=== PATIENT | female | born 1990 | race Caucasian/White ===

== ENCOUNTER 2020-02-15 20:17 | Inpatient (IN) | payer BC ==
[2020-02-15] MEDS ORDERED: Lactated Ringers 1,000 ML IV ONE (22:03)
[2020-02-15] MEDS ORDERED: Tranexamic Acid 1,000 MG in Sodium Chloride 0.9% 100 ML IV PRN (22:03)
[2020-02-15] MEDS ORDERED: Carboprost Tromethamine 250 MCG/1 ML Amp IM PRN (22:03)
[2020-02-15] MEDS ORDERED: Misoprostol 400 MCG (4 X 100 MCG TAB) RECTAL PRN (22:03)
[2020-02-15] MEDS ORDERED: Ondansetron 4 MG/2 ML SDV IVPUSH PRN (22:03)
[2020-02-15] MEDS ORDERED: Lidocaine 1% 30 ML SDV INJECT PRN (22:03)
[2020-02-15] MEDS ORDERED: Methylergonovine 0.2 MG/1 ML Amp IM PRN (22:03)
[2020-02-15] MEDS ORDERED: Sodium Chloride 0.9% 10 ML Syringe FLUSH PRN (22:03)
[2020-02-15] MEDS ORDERED: Oxytocin/Normal Saline 30 UNIT/500 ML BAG IV SCH (22:15)
--- NOTE | 2020-02-15 22:24 | PCM.LDHP ---
L&D History of Present Illness - General Date of Service: 02/15/20 (Admit H&P) Admit Problem/Dx: Patient Status Order with Admit Dx/Problem 02/15/20 22:03 Patient Status [ADT] Routine Admission Diagnosis/Problem Admission Diagnosis/Problem Gestational hypertension affecting third 02/15/20 22:18 29yo @ 38w6d to OB cramping, baby active, mucousy discharge, irregular cxns BP elevated swelling increased pre-E labs look ok, PLT 173, but prot/crea 173. AROM clear, cervix 4+vertex, clear fluid NST reactive admitted will start pitocin augmentation. Source of Information: Patient, Family, Old Records, Provider, RN, Significant Other History Limitations: Reports: No Limitations - History of Present Illness Introduction:: 29yo @ 38w6d in with cramping, irregular cxns, mucousy discharge to be checked. found to have elevated BP, protein in the urine and meeting criteria for pre-E reactive NST cervix 3+ on admit, BBOWI, AROM with clear fluid, cervix now 4+ will start pitocin augmentation monitor closely. Timing/Duration: Reports: intermittent, waxing/waning Location, : Reports: Uterus Severity: Mild Context: Reports: Other (has been isolating) Associated Symptoms: Reports: vaginal discharge, mild amount - Related Data Allergies/Adverse Reactions: Allergies Allergy/AdvReac Type Severity Reaction Status Date / Time No Known Allergies Allergy Verified 11/04/16 05:37 Home Medications: Home Meds Vit Calc,Iron,Folic [ Vitamins] 1 each PO DAILY 03/31/16 [ History] Past Medical History - Past Health History Medical/Surgical History: Denies Medical/Surgical History HEENT History: Reports: None Cardiovascular History: Reports: None Respiratory History: Reports: None Gastrointestinal History: Reports: Cholelithiasis (lap annelise) Genitourinary History: Reports: None WAITRESS History: Reports: , Other (See Below) : 2 Para: 1 LMP (Approximate): Other OB/BYN History: previous preg post term vacuum assist, 41w4d. 8lb 2oz Musculoskeletal History: Reports: Other (See Below) (ACL repair) Neurological History: Reports: None Psychiatric History: Reports: None Endocrine/Metabolic History: Reports: None Hematologic History: Reports: None Immunologic History: Reports: None Oncologic (Cancer) History: Reports: None Dermatologic History: Reports: None - Infectious Disease History Infectious Disease History: Reports: None - Past Surgical History Head Surgeries/Procedures: Reports: None GI Surgical History: Reports: Cholecystectomy, Other (See Below) Other GI Surgeries/Procedures: 12/07/2016 Musculoskeletal Surgical History: Reports: Other (See Below) (ACL repair) Social & Family History - Family History Family Medical History: Noncontributory Cardiac: Reports: Pacemaker (PGF) Endocrine/Metabolic: Reports: Diabetes, type II (PGF) Oncologic: Reports: Pancreatic (PA) Other Family History: Alzheimers PGM - Tobacco Use Smoking Status *Q: Never Smoker Second Hand Smoke Exposure: No - Caffeine Use Caffeine Use: Reports: None - Alcohol Use Alcohol Use in Last Twelve Months: No Alcohol Use Comment: Social use when not - Recreational Drug Use Recreational Drug Use: No - Living Situation & Occupation Living situation: Reports: , with Family Social History Comment: to [place] in April 2015. Mom is Keyonna Su. they have son Vandana born 07-13-2016. She teaches, he farms/ ranches. H&P Review of Systems - Review of Systems: Review Of Systems: Comprehensive ROS is negative, except as noted in HPI. L&D Exam - Exam Exam: See Below - Vital Signs Weight: 240 lb - OB Specific Fundal Height In cm: 39 Contraction Intensity: Mild Movement: Active Heart Tones: Present Heart Tones per Min: 140 Heart Rate (FHR) Variability: Moderate (6-25 bmp) Presentation: Vertex - Saleh Score Saleh Score Cervix Position: Midposition Saleh Score Consistency: Soft Saleh Score Effacement: 51-70% Saleh Score Dilation: 3-4 cm Saleh Score Infant's Station: -2 Saleh Score Total: 8 - Exam General: Alert, Oriented HEENT: Conjunctiva Clear, EOMI, Hearing Intact, Mucosa Moist & Martin'S Additions, Nares Patent, Pupils Equal, Pupils Reactive Neck: Supple, Trachea Midline Lungs: Clear to Auscultation, Normal Respiratory Effort Cardiovascular: Regular Rate, Regular Rhythm GI/Abdominal Exam: Normal Bowel Sounds, Soft, Non-Tender Rectal Exam: Normal Exam Genitourinary: Normal external exam, Normal speculum exam, Cervical dilitation, Cervical discharge (mucous plug), Cervical fluid (clear after AROM), Enlarged uterus Back Exam: Normal Inspection, Full Range of Motion Extremities: Normal Inspection, Normal Range of Motion, Non-Tender, Normal Capillary Refill, Pedal Edema (trace) Skin: Warm, Dry, Intact, Other (sun burn) Neurological: Cranial Nerves Intact, Reflexes Equal Bilateral Psychiatric: Alert, Normal Affect, Normal Mood - Patient Data Lab Results Last 24 hrs: Laboratory Results - last 24 hr 02/15/20 02/15/20 02/15/20 Range/Units 21:17 21:17 21:20 WBC 9.5 (5.0-10.0) 10^3/uL RBC 4.09 L (4.2-5.4) 10^6/uL Hgb 12.0 D (12.0-16.0) g/dL Hct 35.7 L (37.0-47.0) % MCV 87.3 D (80-100) fL MCH 29.3 (27.0-34.0) pg MCHC 33.6 (33.0-35.0) g/dL Plt Count 173 (150-450) 10^3/uL BUN (7-18) mg/dL Creatinine (0.55-1.02) mg/dL Est Cr Clr Drug Dosing mL/min Estimated GFR (MDRD) Uric Acid (2.6-6.0) mg/dL AST (15-37) U/L ALT (14-59) U/L Lactate Dehydrogenase (81-234) U/L Urine Color Yellow (YELLOW) Urine Appearance Slightly cloudy (CLEAR) Urine pH 6.5 (5.0-9.0) Ur Specific [place] 1.025 (1.005-1.030) Urine Protein Negative (NEGATIVE) Urine Glucose (UA) Negative (NEGATIVE) Urine Ketones Negative (NEGATIVE) Urine Occult Blood Moderate H (NEGATIVE) Urine Nitrite Negative (NEGATIVE) Urine Bilirubin Negative (NEGATIVE) Urine Urobilinogen 0.2 (0.2-1.0) mg/dL Ur Leukocyte Esterase Trace H (NEGATIVE) Ur Random Creatinine 112.60 (No establ ref range) mg/dL U Random Total Protein 19.4 H (0.0-11.9) mg/dL Protein/Creatinin Ratio 172.3 H (<150.0) mg/g 02/15/20 Range/Units 21:20 WBC (5.0-10.0) 10^3/uL RBC (4.2-5.4) 10^6/uL Hgb (12.0-16.0) g/dL Hct (37.0-47.0) % MCV (80-100) fL MCH (27.0-34.0) pg MCHC (33.0-35.0) g/dL Plt Count (150-450) 10^3/uL BUN 9 (7-18) mg/dL Creatinine 0.86 (0.55-1.02) mg/dL Est Cr Clr Drug Dosing 111.38 mL/min Estimated GFR (MDRD) > 60 Uric Acid 5.9 (2.6-6.0) mg/dL AST 13 L (15-37) U/L ALT 19 (14-59) U/L Lactate Dehydrogenase 151 (81-234) U/L Urine Color (YELLOW) Urine Appearance (CLEAR) Urine pH (5.0-9.0) Ur Specific [place] (1.005-1.030) Urine Protein (NEGATIVE) Urine Glucose (UA) (NEGATIVE) Urine Ketones (NEGATIVE) Urine Occult Blood (NEGATIVE) Urine Nitrite (NEGATIVE) Urine Bilirubin (NEGATIVE) Urine Urobilinogen (0.2-1.0) mg/dL Ur Leukocyte Esterase (NEGATIVE) Ur Random Creatinine (No establ ref range) mg/dL U Random Total Protein (0.0-11.9) mg/dL Protein/Creatinin Ratio (<150.0) mg/g Result Diagrams: 02/15/20 21:20 02/15/20 21:20 - Problem List (1) Term SNOMED Code(s): 39732154 ICD Code: Z34.90 - ENCNTR FOR SUPRVSN OF NORMAL , UNSP, UNSP TRIMESTER Status: Acute Current Visit: Yes (2) Pre-eclampsia during in third trimester, antepartum SNOMED Code(s): 446482049, 992184690 ICD Code: O14.93 - UNSPECIFIED PRE-ECLAMPSIA, THIRD TRIMESTER Status: Acute Current Visit: Yes (3) Blood type O+ SNOMED Code(s): 285120947 ICD Code: Z67.40 - TYPE O BLOOD, RH POSITIVE Status: Acute Current Visit : Yes (4) Rubella immune SNOMED Code(s): 014989648 ICD Code: Z78.9 - OTHER SPECIFIED HEALTH STATUS Status: Acute Current Visit: Yes (5) Group B Streptococcus not isolated SNOMED Code(s): 617177749 ICD Code: [id number] - Status: Acute Current Visit: Yes (6) NST (non-stress test) reactive SNOMED Code(s): 031755594 ICD Code: Z36.89 - ENCOUNTER FOR OTHER SPECIFIED SCREENING Status : Acute Current Visit: Yes Problem List Initiated/Reviewed/Updated: Yes Orders Last 24hrs: Active Orders 24 hr Category Date Time Status Patient Status [ADT] Routine ADT 02/15/20 22:03 Active Communication Order [RC] ASDIRECTED Care 02/15/20 22:03 Active Heart Tones [RC] PER UNIT ROUTINE Care 02/15/20 22:03 Active Non Stress Test [RC] PER UNIT ROUTINE Care 02/15/20 22:05 Active Notify Provider Vital Signs OB [RC] ASDIRECTED Care 02/15/20 22:03 Active Notify Provider [RC] PRN Care 02/15/20 22:03 Active OB Check [OM.PC] Click To Edit Care 02/15/20 20:30 Ordered Pump Management, Intrathecal [RC] ASDIRECTED Care 02/15/20 22:06 Active Up ad Radha [RC] ASDIRECTED Care 02/15/20 22:03 Active Vital Signs [RC] PER UNIT ROUTINE Care 02/15/20 22:03 Active Clear Liquid Diet [DIET] Diet 02/15/20 Dinner Active CORONAVIRUS COVID-19 PCR PHL Stat Lab 02/15/20 22:09 Ordered Acetaminophen [Tylenol] Med 02/15/20 22:03 Ordered 650 mg PO Q4H PRN Carboprost Tromethamine [Hemabate DS] Med 02/15/20 22:03 Ordered 250 mcg IM ASDIRECTED PRN Lactated Ringers [Ringers, Lactated] 1,000 ml Med 02/15/20 22:15 Ordered IV ASDIRECTED Lactated Ringers [Ringers, Lactated] 1,000 ml Med 02/15/20 22:03 Ordered IV BOLUS Lidocaine 1% [Xylocaine-MPF 1%] Med 02/15/20 22:03 Ordered 30 ml INJECT ASDIRECTED PRN Methylergonovine [Methergine] Med 02/15/20 22:03 Ordered 0.2 mg IM ASDIRECTED PRN Ondansetron [Zofran] Med 02/15/20 22:03 Ordered 4 mg IVPUSH Q4H PRN Oxytocin/Normal Saline [Pitocin in NS 30 UNIT/500 ML] Med 02/15/20 22:15 Ordered 30 unit in 500 ml IV TITRATE Sodium Chloride 0.9% [Saline Flush] Med 02/15/20 22:03 Ordered 10 ml FLUSH ASDIRECTED PRN Tranexamic Acid [Cyklokapron] 1,000 mg Med 02/15/20 22:03 Ordered Sodium Chloride 0.9% [Normal Saline] 100 ml IV ONETIME miSOPROStoL [Cytotec] Med 02/15/20 22:03 Ordered 800 mcg RECTAL ASDIRECTED PRN EFM External [ Heart Monitor External] [WOMSER] Oth 02/15/20 20:30 Ordered Per Unit Routine Saline Lock Insert [OM.PC] Routine Oth 02/15/20 22:03 Ordered Resuscitation Status Routine Resus Stat 02/15/20 22:03 Ordered Medication Orders Acetaminophen (Tylenol) 650 mg PO Q4H PRN PRN Reason: Pain (Mild 1-3) and fever Carboprost Tromethamine (Hemabate Ds) 250 mcg IM ASDIRECTED PRN PRN Reason: HEMORRHAGE Lactated Ringer's (Ringers, Lactated) 1,000 mls @ 999 mls/hr IV BOLUS ONE Stop: 02/15/20 23:03 Lactated Ringer's (Ringers, Lactated) 1,000 mls @ 125 mls/hr IV ASDIRECTED FABIO Oxytocin/Sodium Chloride (Pitocin In Ns 30 Unit/500 Ml) 30 unit in 500 mls @ 2 mls/hr IV TITRATE FABIO; Protocol Tranexamic Acid 1,000 mg/ (Sodium Chloride) 110 mls @ 660 mls/hr IV ONETIME PRN PRN Reason: Bleeding Lidocaine HCl (Xylocaine-Mpf 1%) 30 ml INJECT ASDIRECTED PRN PRN Reason: Perineal Repair Methylergonovine Maleate (Methergine) 0.2 mg IM ASDIRECTED PRN PRN Reason: Hemorrhage Misoprostol (Cytotec) 800 mcg RECTAL ASDIRECTED PRN PRN Reason: Hemorrhage Ondansetron HCl (Zofran) 4 mg IVPUSH Q4H PRN PRN Reason: Nausea/Vomiting Sodium Chloride (Saline Flush) 10 ml FLUSH ASDIRECTED PRN PRN Reason: Keep Vein Open Assessment/Plan Comment:: Assessment: 29yo WF @ 38w6d mild pre-eclampsia reactive NST rubella immune blood type O+ GBS negative admit hgb 12.0, PLT 173, urine protein 173 Plan: admit AROM with clear fluid pitocin augmentation. close monitoring of BP and for pre-E sx and signs all questiosn answered for [facility] and [facility] COVID testing pending. hmb
[2020-02-15] MEDS: Lactated Ringers 1,000 ML IV SCH (22:45)
[2020-02-16] MEDS ORDERED: EPINEPHrine 1 MG/1 ML Amp ONE ×2 (01:20→16:17)
--- NOTE | 2020-02-16 02:07 | PCM.PREANE ---
Preanesthetic Assessment - Procedure Proposed Procedure: IT analgesia - Anesthesia/Transfusion/Family Hx Anesthesia History: Prior Anesthesia Without Reaction Family History of Anesthesia Reaction: No Transfusion History: No Prior Transfusion(s) - Review of Systems General: No Symptoms Pulmonary: No Symptoms Cardiovascular: No Symptoms Gastrointestinal: No Symptoms Neurological: No Symptoms Other: Reports: None - Physical Assessment NPO Status Date: 02/16/20 NPO Status Time: 21:00 Height: 6 ft Weight: 240 lb ASA Class: 2E Mental Status: Alert & Oriented x3 Airway Class: Mallampati = 2 Dentition: Reports: Normal Dentition Thyro-Mental Finger Breadths: 3 Mouth Opening Finger Breadths: 3 ROM/Head Extension: Full Lungs: Clear to Auscultation Cardiovascular: Regular Rate, Regular Rhythm - Lab Values: Laboratory Last Values WBC 9.5 10^3/uL (5.0-10.0) 02/15/20 21:20 RBC 4.09 10^6/uL (4.2-5.4) L 02/15/20 21:20 Hgb 12.0 g/dL (12.0-16.0) D 02/15/20 21:20 Hct 35.7 % (37.0-47.0) L 02/15/20 21:20 MCV 87.3 fL (80-100) D 02/15/20 21:20 MCH 29.3 pg (27.0-34.0) 02/15/20 21:20 MCHC 33.6 g/dL (33.0-35.0) 02/15/20 21:20 Plt Count 173 10^3/uL (150-450) 02/15/20 21:20 BUN 9 mg/dL (7-18) 02/15/20 21:20 Creatinine 0.86 mg/dL (0.55-1.02) 02/15/20 21:20 Est Cr Clr Drug Dosing 111.38 mL/min 02/15/20 21:20 Estimated GFR (MDRD) > 60 02/15/20 21:20 Uric Acid 5.9 mg/dL (2.6-6.0) 02/15/20 21:20 AST 13 U/L (15-37) L 02/15/20 21:20 ALT 19 U/L (14-59) 02/15/20 21:20 Lactate Dehydrogenase 151 U/L (81-234) 02/15/20 21:20 Urine Color Yellow (YELLOW) 02/15/20 21:17 Urine Appearance Slightly cloudy (CLEAR) 02/15/20 21:17 Urine pH 6.5 (5.0-9.0) 02/15/20 21:17 Ur Specific [place] 1.025 (1.005-1.030) 02/15/20 21:17 Urine Protein Negative (NEGATIVE) 02/15/20 21:17 Urine Glucose (UA) Negative (NEGATIVE) 02/15/20 21:17 Urine Ketones Negative (NEGATIVE) 02/15/20 21:17 Urine Occult Blood Moderate (NEGATIVE) H 02/15/20 21:17 Urine Nitrite Negative (NEGATIVE) 02/15/20 21:17 Urine Bilirubin Negative (NEGATIVE) 02/15/20 21:17 Urine Urobilinogen 0.2 mg/dL (0.2-1.0) 02/15/20 21:17 Ur Leukocyte Esterase Trace (NEGATIVE) H 02/15/20 21:17 Ur Random Creatinine 112.60 mg/dL (No establ ref range) 02/15/20 21:17 U Random Total Protein 19.4 mg/dL (0.0-11.9) H 02/15/20 21:17 Protein/Creatinin Ratio 172.3 mg/g (<150.0) H 02/15/20 21:17 SARS-CoV-2 RNA (RT-PCR) Negative (NEGATIVE) 02/15/20 22:35 - Allergies Allergies/Adverse Reactions: Allergies Allergy/AdvReac Type Severity Reaction Status Date / Time No Known Allergies Allergy Verified 11/04/16 05:37 - Blood Blood Available: No - Anesthesia Plan Pre-Op Medication Ordered: None - Acknowledgements Anesthesia Type Planned: Spinal Pt an Appropriate Candidate for the Planned Anesthesia: Yes Alternatives and Risks of Anesthesia Discussed w Pt/Guardian: Yes Pt/Guardian Understands and Agrees with Anesthesia Plan: Yes PreAnesthesia Questionnaire - Past Health History Medical/Surgical History: Denies Medical/Surgical History HEENT History: Reports: None Cardiovascular History: Reports: None Respiratory History: Reports: None Gastrointestinal History: Reports: Cholelithiasis (lap annelise) Genitourinary History: Reports: None 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 8lb 2oz Musculoskeletal History: Reports: Other (See Below) (ACL repair) Neurological History: Reports: None Psychiatric History: Reports: None Endocrine/Metabolic History: Reports: None Hematologic History: Reports: None Immunologic History: Reports: None Oncologic (Cancer) History: Reports: None Dermatologic History: Reports: None - Infectious Disease History Infectious Disease History: Reports: None - Past Surgical History Head Surgeries/Procedures: Reports: None GI Surgical History: Reports: Cholecystectomy, Other (See Below) Other GI Surgeries/Procedures: 12/07/2016 Musculoskeletal Surgical History: Reports: Other (See Below) (ACL repair) - SUBSTANCE USE Smoking Status *Q: Never Smoker Second Hand Smoke Exposure: No Recreational Drug Use History: No - HOME MEDS Home Medications: Home Meds Vit Calc,Iron,Folic [ Vitamins] 1 each PO DAILY 03/31/16 [ History] - CURRENT (IN HOUSE) MEDS Current Meds: Current Medications Acetaminophen (Tylenol) 650 mg PO Q4H PRN PRN Reason: Pain (Mild 1-3) and fever Carboprost Tromethamine (Hemabate Ds) 250 mcg IM ASDIRECTED PRN PRN Reason: HEMORRHAGE Lactated Ringer's (Ringers, Lactated) 1,000 mls @ 125 mls/hr IV ASDIRECTED FABIO Last Admin: 02/15/20 22:45 Dose: 125 mls/hr Oxytocin/Sodium Chloride (Pitocin In Ns 30 Unit/500 Ml) 30 unit in 500 mls @ 2 mls/hr IV TITRATE FABIO; Protocol Last Titration: 02/15/20 23:40 Dose: 4 munits/min, 4 mls/hr Tranexamic Acid 1,000 mg/ (Sodium Chloride) 110 mls @ 660 mls/hr IV ONETIME PRN PRN Reason: Bleeding Lidocaine HCl (Xylocaine-Mpf 1%) 30 ml INJECT ASDIRECTED PRN PRN Reason: Perineal Repair Methylergonovine Maleate (Methergine) 0.2 mg IM ASDIRECTED PRN PRN Reason: Hemorrhage Misoprostol (Cytotec) 800 mcg RECTAL ASDIRECTED PRN PRN Reason: Hemorrhage Ondansetron HCl (Zofran) 4 mg IVPUSH Q4H PRN PRN Reason: Nausea/Vomiting Last Admin: 02/16/20 01:15 Dose: 4 mg Sodium Chloride (Saline Flush) 10 ml FLUSH ASDIRECTED PRN PRN Reason: Keep Vein Open Discontinued Medications Epinephrine HCl (Adrenalin) Confirm Administered Dose 1 mg .ROUTE .STK-MED ONE Stop: 02/16/20 01:21 Lactated Ringer's (Ringers, Lactated) 1,000 mls @ 999 mls/hr IV BOLUS ONE Stop: 02/15/20 23:03
--- NOTE | 2020-02-16 02:11 | PCM.PRNOTE ---
- Free Text/Narrative Note: IT analgesia 0122 room Time out complete Back prepped and draped NSF with betadine Lidocaine 1%skin wheal L3/4 times 1 +CSF - Heme - Parathesia 10mcg precedex 0.1mL epi 0.9mL NS 0.9 mL 0.75% marcaine. Tolerated well. All needles accounted for and disposed of in sharps box. Complete 013
[2020-02-16] MEDS: Lactated Ringers 1,000 ML IV SCH (02:38)
[2020-02-16] MEDS ORDERED: Benzocaine/Menthol 20%-0.5% Spray 56 GM Canister TOP PRN (04:40)
[2020-02-16] MEDS ORDERED: Zolpidem 5 MG Tab PO PRN (04:40)
[2020-02-16] MEDS ORDERED: Simethicone 80 MG Tab.Chew PO PRN (04:40)
--- NOTE | 2020-02-16 05:04 | PCM.DEL ---
L & D Note - General Info Date of Service: 02/16/20 (Time of delivery: 0424) Mother's Due Date: 02/23/20 (39w0d) - Delivery Note Labor: Spontaneous, Augmented by ARM, Augmented by Oxytocin Delivery Outcome: Livebirth Delivery Method: Spontaneous Vaginal Delivery-Single Infant Delivery Mode: Spontaneous Presentation: Right Occiput Anterior (VINH) Nuchal Cord: None Prep: Povidone-Iodine (Betadine Anesthesia Type: Intrathecal Amniotic Fluid Description: Clear Episiotomy Type: None Laceration: None Placenta: Intact, Spontaneous Cord: 3 Vessels Estimated Blood Loss: 256 (per [place]) Resuscitation Needed: No : Suctioned, Bulb Syringe, Stimulated, Warmed, English Used Provider: Christie Dorsey Score 1 min: 9 Score 5 min: 9 Delivery Comments (Free Text/Narrative):: Edna did a beautiful job pushing and easily delivered a viable male infant over an intact perineum. Viable male infant delivered to mom's abdomen with strong cry at . APGARs 9 & 9 3VC, double clamped by me, then cut be Jones. cord blood sample obtained. placenta delivered spontaneously Welch, examined and found to be complete, intact. fundus firm with massage. Pitocin infusing per protocol. EBL 256ml no complications both mother and baby doing well. will follow routine PP and nursery routines. hmb Induction Criteria - Saleh Score Saleh Score Dilation: 3-4 cm Saleh Score Effacement: 60-70% Saleh Score 's Station: -2 Saleh Score Consistency: Soft Saleh Score Cervix Position: Midposition Saleh Score Total: 8 Saleh Score Presenting Part: Reports: Cephalic - Induction Gestational Age >/= 39 wks: Yes Medical Indication: pre-Eclampsia Estimated Pelvis: Reports: Adequate Reassuring Monitoring Strip: Yes Absence of Tachy Systole: Yes - Augmentation Estimated Pelvis: Reports: Adequate Weight Estimated:: Reports: AGA Reassuring Monitoring Strip: Yes Absence of Tachy Systole: Yes - General Info Date of Service: 02/16/20 - Patient Data Weight - Most Recent: 240 lb Lab Results Last 24 Hours: Laboratory Results - last 24 hr 02/15/20 02/15/20 02/15/20 Range/Units 21:17 21:17 21:20 WBC 9.5 (5.0-10.0) 10^3/uL RBC 4.09 L (4.2-5.4) 10^6/uL Hgb 12.0 D (12.0-16.0) g/dL Hct 35.7 L (37.0-47.0) % MCV 87.3 D (80-100) fL MCH 29.3 (27.0-34.0) pg MCHC 33.6 (33.0-35.0) g/dL Plt Count 173 (150-450) 10^3/uL BUN (7-18) mg/dL Creatinine (0.55-1.02) mg/dL Est Cr Clr Drug Dosing mL/min Estimated GFR (MDRD) Uric Acid (2.6-6.0) mg/dL AST (15-37) U/L ALT (14-59) U/L Lactate Dehydrogenase (81-234) U/L Urine Color Yellow (YELLOW) Urine Appearance Slightly cloudy (CLEAR) Urine pH 6.5 (5.0-9.0) Ur Specific [place] 1.025 (1.005-1.030) Urine Protein Negative (NEGATIVE) Urine Glucose (UA) Negative (NEGATIVE) Urine Ketones Negative (NEGATIVE) Urine Occult Blood Moderate H (NEGATIVE) Urine Nitrite Negative (NEGATIVE) Urine Bilirubin Negative (NEGATIVE) Urine Urobilinogen 0.2 (0.2-1.0) mg/dL Ur Leukocyte Esterase Trace H (NEGATIVE) Ur Random Creatinine 112.60 (No establ ref range) mg/dL U Random Total Protein 19.4 H (0.0-11.9) mg/dL Protein/Creatinin Ratio 172.3 H (<150.0) mg/g SARS-CoV-2 RNA (RT-PCR) (NEGATIVE) 02/15/20 02/15/20 Range/Units 21:20 22:35 WBC (5.0-10.0) 10^3/uL RBC (4.2-5.4) 10^6/uL Hgb (12.0-16.0) g/dL Hct (37.0-47.0) % MCV (80-100) fL MCH (27.0-34.0) pg MCHC (33.0-35.0) g/dL Plt Count (150-450) 10^3/uL BUN 9 (7-18) mg/dL Creatinine 0.86 (0.55-1.02) mg/dL Est Cr Clr Drug Dosing 111.38 mL/min Estimated GFR (MDRD) > 60 Uric Acid 5.9 (2.6-6.0) mg/dL AST 13 L (15-37) U/L ALT 19 (14-59) U/L Lactate Dehydrogenase 151 (81-234) U/L Urine Color (YELLOW) Urine Appearance (CLEAR) Urine pH (5.0-9.0) Ur Specific [place] (1.005-1.030) Urine Protein (NEGATIVE) Urine Glucose (UA) (NEGATIVE) Urine Ketones (NEGATIVE) Urine Occult Blood (NEGATIVE) Urine Nitrite (NEGATIVE) Urine Bilirubin (NEGATIVE) Urine Urobilinogen (0.2-1.0) mg/dL Ur Leukocyte Esterase (NEGATIVE) Ur Random Creatinine (No establ ref range) mg/dL U Random Total Protein (0.0-11.9) mg/dL Protein/Creatinin Ratio (<150.0) mg/g SARS-CoV-2 RNA (RT-PCR) Negative (NEGATIVE) Med Orders - Current: Current Medications Acetaminophen (Tylenol) 650 mg PO Q4H PRN PRN Reason: Pain (Mild 1-3) and fever Benzocaine/Menthol (Dermoplast Pain Relief [place]) 0 gm TOP Q4H PRN PRN Reason: Perineal comfort measures Carboprost Tromethamine (Hemabate Ds) 250 mcg IM ASDIRECTED PRN PRN Reason: HEMORRHAGE Docusate Sodium (Colace) 100 mg PO BID PRN PRN Reason: Constipation Lactated Ringer's (Ringers, Lactated) 1,000 mls @ 125 mls/hr IV ASDIRECTED FABIO Last Admin: 02/16/20 02:38 Dose: 125 mls/hr Oxytocin/Sodium Chloride (Pitocin In Ns 30 Unit/500 Ml) 30 unit in 500 mls @ 2 mls/hr IV TITRATE FABIO; Protocol Last Titration: 02/16/20 03:00 Dose: 14 munits/min, 14 mls/hr Tranexamic Acid 1,000 mg/ (Sodium Chloride) 110 mls @ 660 mls/hr IV ONETIME PRN PRN Reason: Bleeding Ibuprofen (Motrin) 800 mg PO Q8H PRN PRN Reason: Mild Pain or Fever Lidocaine HCl (Xylocaine-Mpf 1%) 30 ml INJECT ASDIRECTED PRN PRN Reason: Perineal Repair Methylergonovine Maleate (Methergine) 0.2 mg IM ASDIRECTED PRN PRN Reason: Hemorrhage Misoprostol (Cytotec) 800 mcg RECTAL ASDIRECTED PRN PRN Reason: Hemorrhage Ondansetron HCl (Zofran) 4 mg IVPUSH Q4H PRN PRN Reason: Nausea/Vomiting Last Admin: 02/16/20 01:15 Dose: 4 mg Prenat Multivit/[place]/Iron/Folic Ac ( Plus Iron) 1 each PO DAILY FABIO Simethicone (Simethicone) 80 mg PO Q4H PRN PRN Reason: Gas Sodium Chloride (Saline Flush) 10 ml FLUSH ASDIRECTED PRN PRN Reason: Keep Vein Open Witch Zora (Medi-Pads) 1 each TOP Q4HR PRN PRN Reason: Perineal Comfort Measure Zolpidem Tartrate (Ambien) 5 mg PO BEDTIME PRN PRN Reason: Insomnia Discontinued Medications Epinephrine HCl (Adrenalin) Confirm Administered Dose 1 mg .ROUTE .STK-MED ONE Stop: 02/16/20 01:21 Last Admin: 02/16/20 03:32 Dose: Not Given Lactated Ringer's (Ringers, Lactated) 1,000 mls @ 999 mls/hr IV BOLUS ONE Stop: 02/15/20 23:03 Last Admin: 02/16/20 03:31 Dose: Not Given - Problem List & Annotations (1) Term SNOMED Code(s): 71479091 Code(s): Z34.90 - ENCNTR FOR SUPRVSN OF NORMAL , UNSP, UNSP TRIMESTER Status: Acute Current Visit: Yes (2) Pre-eclampsia during in third trimester, antepartum SNOMED Code(s): 240824548, 874938136 Code(s): O14.93 - UNSPECIFIED PRE-ECLAMPSIA, THIRD TRIMESTER Status: Acute Current Visit: Yes (3) Blood type O+ SNOMED Code(s): 480120794 Code(s): Z67.40 - TYPE O BLOOD, RH POSITIVE Status: Acute Current Visit: Yes (4) Rubella immune SNOMED Code(s): 218268155 Code(s): Z78.9 - OTHER SPECIFIED HEALTH STATUS Status: Acute Current Visit: Yes (5) Group B Streptococcus not isolated SNOMED Code(s): 310823924 Code(s): MXD0442 - Status: Acute Current Visit: Yes (6) NST (non-stress test) reactive SNOMED Code(s): 918987652 Code(s): Z36.89 - ENCOUNTER FOR OTHER SPECIFIED SCREENING Status : Acute Current Visit: Yes - Problem List Review Problem List Initiated/Reviewed/Updated: Yes - My Orders Last 24 Hours: My Active Orders 02/15/20 20:30 OB Check [OM.PC] Click To Edit EFM External [ Heart Monitor External] [WOMSER] Per Unit Routine 02/15/20 22:03 Patient Status [ADT] Routine Communication Order [RC] ASDIRECTED Notify Provider Vital Signs OB [RC] ASDIRECTED Notify Provider [RC] PRN Up ad Radha [RC] ASDIRECTED Vital Signs [RC] PER UNIT ROUTINE Acetaminophen [Tylenol] 650 mg PO Q4H PRN Carboprost Tromethamine [Hemabate DS] 250 mcg IM ASDIRECTED PRN Lidocaine 1% [Xylocaine-MPF 1%] 30 ml INJECT ASDIRECTED PRN Methylergonovine [Methergine] 0.2 mg IM ASDIRECTED PRN Ondansetron [Zofran] 4 mg IVPUSH Q4H PRN Sodium Chloride 0.9% [Saline Flush] 10 ml FLUSH ASDIRECTED PRN Tranexamic Acid [Cyklokapron] 1,000 mg Sodium Chloride 0.9% [Normal Saline] 100 ml IV ONETIME miSOPROStoL [Cytotec] 800 mcg RECTAL ASDIRECTED PRN Saline Lock Insert [OM.PC] Routine Resuscitation Status Routine 02/15/20 22:06 Pump Management, Intrathecal [RC] ASDIRECTED 02/15/20 22:15 Lactated Ringers [Ringers, Lactated] 1,000 ml IV ASDIRECTED Oxytocin/Normal Saline [Pitocin in NS 30 UNIT/500 ML] 30 unit in 500 ml IV TITRATE 02/15/20 Dinner Clear Liquid Diet [DIET] 02/16/20 04:40 Benzocaine/Menthol [Dermoplast Pain Relief [place]] See Dose Instructions TOP Q4H PRN Docusate Sodium [Colace] 100 mg PO BID PRN Ibuprofen [Motrin] 800 mg PO Q8H PRN Simethicone 80 mg PO Q4H PRN Zolpidem [Ambien] 5 mg PO BEDTIME PRN witch Zora [Medi-Pads] 1 each TOP Q4HR PRN 02/16/20 04:41 Assess Lochia [WOMSER] Per Unit Routine Assess Uterine Involution [WOMSER] Per Unit Routine Breast Pump [WOMSER] Per Unit Routine Ice Therapy [OM.PC] Per Unit Routine Perineal Care [OM.PC] Per Unit Routine Sitz Bath [OM.PC] Per Unit Routine 02/16/20 09:00 Vit with Ca/FA/Iron [ Plus Iron] 1 each PO DAILY 02/16/20 Breakfast Regular Diet [DIET] 02/18/20 05:11 CBC W/O DIFF,HEMOGRAM [HEME] AM - Plan Plan:: Assessment: 29yo WF @ 38w6d mild pre-eclampsia reactive NST rubella immune blood type O+ GBS negative admit hgb 12.0, PLT 173, urine protein 173 Plan: admit AROM with clear fluid pitocin augmentation. close monitoring of BP and for pre-E sx and signs all questiosn answered for Edna and Jones COVID testing pending. hmb Delivery: over intact perineum without complications. viable male . APGARs 9 & 9 7lb 8oz 3040g time of delivery 0424 on 02-16-2020 [place]. hmb
[2020-02-16] MEDS: Ibuprofen 800 MG Tab PO PRN ×3 (05:29→22:50)
[2020-02-16] MEDS: Prenatal Multivitamin with Calcium/Folic Acid/Iron Tab PO SCH (11:12)
[2020-02-16] MEDS: Acetaminophen 325 MG Tab PO PRN ×3 (11:12→22:50)
[2020-02-16] MEDS ORDERED: Dexmedetomidine 200 MCG/2 ML SDV ONE ×2 (11:49→16:17)
--- NOTE | 2020-02-16 12:02 | PCM48HPAN ---
Post Anesthesia Note - EVALUATION WITHIN 48HRS OF ANESTHETIC Vital Signs in Normal Range: Yes Patient Participated in Evaluation: Yes Respiratory Function Stable: Yes Airway Patent: Yes Cardiovascular Function Stable: Yes Hydration Status Stable: Yes Pain Control Satisfactory: Yes Nausea and Vomiting Control Satisfactory: Yes Mental Status Recovered: Yes Vital Signs: Last Vital Signs Temp 98.3 F 02/16/20 08:00 Pulse 92 02/16/20 08:00 Resp 16 02/16/20 08:00 BP 134/74 02/16/20 08:00 Pulse Ox - COMMENTS/OBSERVATIONS Free Text/Narrative:: Pt resting in bed comfortably post IT for labor analgesia. NO ARCs
[2020-02-16] MEDS ORDERED: Sodium Chloride 0.9% 10 ML Syringe ONE (16:17)
[2020-02-16] MEDS: Docusate Sodium 100 MG Cap PO PRN (22:24)
[2020-02-17] MEDS: Prenatal Multivitamin with Calcium/Folic Acid/Iron Tab PO SCH (08:05)
[2020-02-17] MEDS: Ibuprofen 800 MG Tab PO PRN ×2 (08:05→16:47)
[2020-02-17] MEDS: Docusate Sodium 100 MG Cap PO PRN (21:47)
[2020-02-17] MEDS: Acetaminophen 325 MG Tab PO PRN (21:47)
[2020-02-18] MEDS: Ibuprofen 800 MG Tab PO PRN (05:03)
[2020-02-18] MEDS: Acetaminophen 325 MG Tab PO PRN (05:03)
[2020-02-18 08:38] VITALS: BP 133/86; PULSE 80
[2020-02-18] MEDS: Prenatal Multivitamin with Calcium/Folic Acid/Iron Tab PO SCH (08:55)
[2020-02-18] MEDS: Docusate Sodium 100 MG Cap PO PRN (08:55)
--- NOTE | 2020-02-18 13:00 | PCM.DCSUM1 ---
Discharge Summary - Hospital Course Free Text/Narrative:: Edna is a 29yo WF G2 now P2 who is PP day #2 ready for discharge. flow decreased, cramping only with . eating voiding and ambulating well after uncomplicated vaginal delivery. admitted with pre-eclampsia, possible evolving HELLP, and that appears to have stablized. is ready for dishcarge and will gohome today is good condition. delivered a viable 7lb 8oz male on 02-16-2020 @ 0424 hmb HPI Initial Comments: as above--see admission H&P Brief History: as above see admit and EPIC notes. Diagnosis: Stroke: No - Discharge Data Discharge Date: 02/18/20 (PPD #2) Discharge Disposition: Home, Self-Care 01 Condition: Good - Referral to Home Health Primary Care Physician: Christie Dorsey MD - Discharge Diagnosis/Problem(s) (1) Term SNOMED Code(s): 73063825 ICD Code: Z34.90 - ENCNTR FOR SUPRVSN OF NORMAL , UNSP, UNSP TRIMESTER Status: Acute Current Visit: Yes (2) Pre-eclampsia during in third trimester, antepartum SNOMED Code(s): 066220798, 418909146 ICD Code: O14.93 - UNSPECIFIED PRE-ECLAMPSIA, THIRD TRIMESTER Status: Acute Current Visit: Yes (3) Blood type O+ SNOMED Code(s): 234735145 ICD Code: Z67.40 - TYPE O BLOOD, RH POSITIVE Status: Acute Current Visit : Yes (4) Rubella immune SNOMED Code(s): 187573505 ICD Code: Z78.9 - OTHER SPECIFIED HEALTH STATUS Status: Acute Current Visit: Yes (5) Group B Streptococcus not isolated SNOMED Code(s): 457109381 ICD Code: UNE5724 - Status: Acute Current Visit: Yes (6) NST (non-stress test) reactive SNOMED Code(s): 211803984 ICD Code: Z36.89 - ENCOUNTER FOR OTHER SPECIFIED SCREENING Status : Acute Current Visit: Yes - Patient Summary/Data Hospital Course: Hospital course uneventful. this delightful 29yo G2 now P2 was admitted as noted with pre-E at term, 39 weeks she delivered [place], an 7lb 8oz/ 3405g male @ 0424 on 5-31-20 without complications vaginally with APGARs 9 & 9 wtihout problems. afebrile with stable VS. flow as expected, and cramping only with nursing. voiding, ambulating and eating well. no nausea or vomiting. pre-E sx resolving. labs: hgb on admit 12.0, with 10.7 PTD PLT 173 on admit, 144 PTD other pre-E labs on admit reassuring except for urine protein/creatinine ratio home today in good condition with routine discharge orders and instructions. follow up for 6 week check and sooner prn 'all questions answered. hmb - Patient Instructions Diet: Usual Diet as Tolerated Driving: May Drive Today Showering/Bathing: May Shower Notify Provider of: Fever, Increased Pain, Swelling and Redness, Drainage, Nausea and/or Vomiting - Discharge Plan *PRESCRIPTION DRUG MONITORING PROGRAM REVIEWED*: Not Applicable *COPY OF PRESCRIPTION DRUG MONITORING REPORT IN PATIENT EDEN: Not Applicable Home Medications: Home Meds Vit Calc,Iron,Folic [ Vitamins] 1 each PO DAILY 03/31/16 [ History] Patient Handouts: Care After Vaginal Delivery Referrals: Christie Dorsey MD [Primary Care Provider] - (at baby's appointment you can schedule your 6 week follow up, appointment with Dr. Dorsey at a time that works best for you.) - Discharge Summary/Plan Comment DC Time >30 min.: No Discharge Summary/Plan Comment: 6 week check and sooner as needed. hmb - Patient Data Vitals - Most Recent: Last Vital Signs Temp 97.8 F 02/18/20 08:00 Pulse 80 02/18/20 08:00 Resp 18 02/18/20 08:00 BP 133/86 02/18/20 08:00 Pulse Ox 100 02/18/20 08:00 Weight - Most Recent: 240 lb Lab Results - Last 24 hrs: Laboratory Results - last 24 hr 02/18/20 Range/Units 05:35 WBC 7.8 (5.0-10.0) 10^3/uL RBC 3.61 L (4.2-5.4) 10^6/uL Hgb 10.7 L (12.0-16.0) g/dL Hct 32.3 L (37.0-47.0) % MCV 89.5 (80-100) fL MCH 29.6 (27.0-34.0) pg MCHC 33.1 (33.0-35.0) g/dL Plt Count 144 L (150-450) 10^3/uL Med Orders - Current: Current Medications Acetaminophen (Tylenol) 650 mg PO Q4H PRN PRN Reason: Pain (Mild 1-3) and fever Last Admin: 02/18/20 05:03 Dose: 650 mg Benzocaine/Menthol (Dermoplast Pain Relief [place]) 0 gm TOP Q4H PRN PRN Reason: Perineal comfort measures Last Admin: 02/18/20 05:05 Dose: 1 spray Carboprost Tromethamine (Hemabate Ds) 250 mcg IM ASDIRECTED PRN PRN Reason: HEMORRHAGE Docusate Sodium (Colace) 100 mg PO BID PRN PRN Reason: Constipation Last Admin: 02/18/20 08:55 Dose: 100 mg Lactated Ringer's (Ringers, Lactated) 1,000 mls @ 125 mls/hr IV ASDIRECTED FABIO Last Admin: 02/16/20 02:38 Dose: 125 mls/hr Oxytocin/Sodium Chloride (Pitocin In Ns 30 Unit/500 Ml) 30 unit in 500 mls @ 2 mls/hr IV TITRATE FABIO; Protocol Last Titration: 02/16/20 05:30 Dose: 125 munits/min, 125 mls/hr Tranexamic Acid 1,000 mg/ (Sodium Chloride) 110 mls @ 660 mls/hr IV ONETIME PRN PRN Reason: Bleeding Ibuprofen (Motrin) 800 mg PO Q8H PRN PRN Reason: Mild Pain or Fever Last Admin: 02/18/20 05:03 Dose: 800 mg Lidocaine HCl (Xylocaine-Mpf 1%) 30 ml INJECT ASDIRECTED PRN PRN Reason: Perineal Repair Methylergonovine Maleate (Methergine) 0.2 mg IM ASDIRECTED PRN PRN Reason: Hemorrhage Misoprostol (Cytotec) 800 mcg RECTAL ASDIRECTED PRN PRN Reason: Hemorrhage Ondansetron HCl (Zofran) 4 mg IVPUSH Q4H PRN PRN Reason: Nausea/Vomiting Last Admin: 02/16/20 01:15 Dose: 4 mg Prenat Multivit/[place]/Iron/Folic Ac ( Plus Iron) 1 each PO DAILY FABIO Last Admin: 02/18/20 08:55 Dose: 1 each Simethicone (Simethicone) 80 mg PO Q4H PRN PRN Reason: Gas Sodium Chloride (Saline Flush) 10 ml FLUSH ASDIRECTED PRN PRN Reason: Keep Vein Open Witch Zora (Medi-Pads) 1 each TOP Q4HR PRN PRN Reason: Perineal Comfort Measure Zolpidem Tartrate (Ambien) 5 mg PO BEDTIME PRN PRN Reason: Insomnia Discontinued Medications Dexmedetomidine HCl (Precedex) Confirm Administered Dose 200 mcg .ROUTE .STK- MED ONE Stop: 02/16/20 11:50 Dexmedetomidine HCl (Precedex) 10 mcg .XX .STK-MED ONE Stop: 02/16/20 16:18 Epinephrine HCl (Adrenalin) Confirm Administered Dose 1 mg .ROUTE .STK-MED ONE Stop: 02/16/20 01:21 Last Admin: 02/16/20 03:32 Dose: Not Given Epinephrine HCl (Adrenalin) 1 mg .XX .STK-MED ONE Stop: 02/16/20 16:18 Lactated Ringer's (Ringers, Lactated) 1,000 mls @ 999 mls/hr IV BOLUS ONE Stop: 02/15/20 23:03 Last Admin: 02/16/20 03:31 Dose: Not Given Sodium Chloride (Saline Flush) 0.9 ml .XX .STK-MED ONE Stop: 02/16/20 16:18
--- NOTE | 2020-02-18 14:59 | PN ---
DATE: 02/17/2020 SUBJECTIVE: This mom is one day status post uncomplicated spontaneous vaginal delivery. She is doing well. Voiding, ambulating and eating without difficulty. Breast feeding is going well, and she has no concerns and no breast issues. She feels like her milk supply has not increased in volume yet. Flow is decreasing, and she is having cramping with nursing only. OBJECTIVE: Temp 98.2, heart rate 76 and regular, blood pressure is 116/80, respiratory rate 16, and O2 saturation of 97%. Fundus is firm. Edema resolving. IMPRESSION: day #1, doing well, mom; preeclampsia on admission, resolving. PLAN: We will continue to monitor closely. Further management pending her clinical course. Likely discharge home tomorrow. All of their questions were answered. They are happy with their care and delighted with their son and with our staff. [facility] /[id number]
== END 2020-02-18 12:25 | disposition home or self-care (01) | DRG 560 ==
LOC: DL.OBCHECK 20:17 → DL.OB 22:00 → OBSVTOIN 02-16 04:24 → DL.OB 02-18 09:57
PROVIDERS: ADMIT Family Medicine; ATTEND Family Medicine
PROC: 10E0XZZ Delivery of Products of Conception, External Approach (ICD-10-PCS; principal; 2020-02-16)
PROC: 10907ZC Drainage of Amniotic Fluid, Therapeutic from Products of Conception, Via Natural or Artificial Opening (ICD-10-PCS; 2020-02-16)
PROC: 3E0R3BZ Introduction of Anesthetic Agent into Spinal Canal, Percutaneous Approach (ICD-10-PCS; 2020-02-16)
PROC: 00HU33Z Insertion of Infusion Device into Spinal Canal, Percutaneous Approach (ICD-10-PCS; 2020-02-16)
DX: O14.04 Mild to moderate pre-eclampsia, complicating childbirth (principal); Z37.0 Single live birth; Z3A.38 38 weeks gestation of pregnancy; Z20.828 Contact with and (suspected) exposure to other viral communicable diseases
CPT/HCPCS: 36415; 51701; 59409; 81003; 82565; 82570; 83615; 84156; 84450; 84460; 84520; 84550; 85027; A9270-GY; J0171; J2405; J2590; J7120; U0002

== ENCOUNTER 2020-03-21 20:56 | Emergency (ER) | payer BC, OTHER ==
[2020-03-21] MEDS ORDERED: Cephalexin 500 MG Cap PO ONE (20:57)
[2020-03-21 21:09] VITALS: PULSE 85
[2020-03-21 22:02] LABS: ANION GAP 14.6 mEq/L (7-13)
[2020-03-21] MEDS ORDERED: cefTRIAXone 1 GM, Lidocaine 1% 2.1 ML IM ONE ×2 (22:02)
[2020-03-21] MEDS ORDERED: Cephalexin 500 MG Cap ONE (22:08)
--- NOTE | 2020-03-21 22:10 | EDM.PDOC ---
ED HPI GENERAL MEDICAL PROBLEM - General Chief Complaint: Skin Complaint Stated Complaint: POSSIBLE MASTITIS Time Seen by Provider: 03/21/20 21:00 Source of Information: Reports: Patient History Limitations: Reports: No Limitations - History of Present Illness INITIAL COMMENTS - FREE TEXT/NARRATIVE: ED with c/o fever, tenderness, swelling firmness and redness to right outer daniel ast. Nursing . Currently pumping every 2 hours 4-5 ounces per breast. Notes increased pain with nursing. No vomiting. Right Breast Pain Score (Numeric/FACES): 0 - Related Data Allergies Allergy/AdvReac Type Severity Reaction Status Date / Time No Known Allergies Allergy Verified 03/21/20 21:19 Home Meds: Home Meds Vit Calc,Iron,Folic [ Vitamins] 1 each PO DAILY 03/31/16 [History] Past Medical History - Past Health History Medical/Surgical History: Denies Medical/Surgical History HEENT History: Reports: None Cardiovascular History: Reports: None Respiratory History: Reports: None Gastrointestinal History: Reports: Cholelithiasis Genitourinary History: Reports: None TAFFY PULLER History: Reports: , Other (See Below) Other TAFFY PULLER History: previous preg post term vacuum assist, 41w4d. 8lb 2oz Musculoskeletal History: Reports: Other (See Below) Neurological History: Reports: None Psychiatric History: Reports: None Endocrine/Metabolic History: Reports: None Hematologic History: Reports: None Immunologic History: Reports: None Oncologic (Cancer) History: Reports: None Dermatologic History: Reports: None - Infectious Disease History Infectious Disease History: Reports: None - Past Surgical History Head Surgeries/Procedures: Reports: None GI Surgical History: Reports: Cholecystectomy, Other (See Below) Other GI Surgeries/Procedures: 12/07/2016 Musculoskeletal Surgical History: Reports: Other (See Below) Other Musculoskeletal Surgeries/Procedures:: ACL surgery in 2008 Social & Family History - Family History Family Medical History: Noncontributory Cardiac: Reports: Pacemaker Endocrine/Metabolic: Reports: Diabetes, type II Oncologic: Reports: Pancreatic - Tobacco Use Smoking Status *Q: Never Smoker Second Hand Smoke Exposure: No - Caffeine Use Caffeine Use: Reports: Soda - Recreational Drug Use Recreational Drug Use: No - Living Situation & Occupation Living situation: Reports: , with Family ED ROS GENERAL - Review of Systems Review Of Systems: Comprehensive ROS is negative, except as noted in HPI. ED EXAM, SKIN/RASH Exam: See Below Exam Limited By: No Limitations General Appearance: Alert, Mild Distress Eye Exam: Bilateral Eye: EOMI Ears: Normal External Exam, Hearing Grossly Normal Nose: Normal Inspection Throat/Mouth: Normal Inspection Head: Atraumatic, Normocephalic Neck: Normal Inspection Respiratory/Chest: No Respiratory Distress, Lungs Clear, Normal Breath Sounds, Other (tenderness with frmness to left out breat, slight increased warmth) Cardiovascular: Normal Peripheral Pulses, Regular Rate, Rhythm Extremities: Normal Inspection Course - Vital Signs Last Recorded V/S: Last Vital Signs Temp 96.8 F L 03/21/20 22:19 Pulse 85 03/21/20 22:19 Resp 16 03/21/20 22:19 BP 107/72 03/21/20 22:19 Pulse Ox 99 03/21/20 22:19 - Orders/Labs/Meds Labs: Laboratory Tests 03/21/20 03/21/20 03/21/20 Range/Units 21:24 21:24 21:24 WBC 14.6 H (5.0-10.0) 10^3/uL RBC 4.99 (4.2-5.4) 10^6/uL Hgb 13.9 D (12.0-16.0) g/dL Hct 41.3 (37.0-47.0) % MCV 82.8 D (80-100) fL MCH 27.9 (27.0-34.0) pg MCHC 33.7 (33.0-35.0) g/dL Plt Count 155 (150-450) 10^3/uL Neut % (Auto) 85.3 H (42.2-75.2) % Lymph % (Auto) 7.0 L (20.5-50.1) % [place] % (Auto) 7.4 (2-8) % Eos % (Auto) 0.2 L (1.0-3.0) % Baso % (Auto) 0.1 (0.0-1.0) % Sodium 139 (136-145) mmol/L Potassium 3.6 (3.5-5.1) mmol/L Chloride 103 (98-107) mmol/L Carbon Dioxide 25 (21-32) mmol/L Anion Gap 14.6 H (7-13) mEq/L BUN 13 (7-18) mg/dL Creatinine 1.17 H (0.55-1.02) mg/dL Est Cr Clr Drug Dosing 81.87 mL/min Estimated GFR (MDRD) 55 BUN/Creatinine Ratio 11.1 (No establ ref range) Glucose 114 H (74-99) mg/dL Lactic Acid 2.2 H* (0.4-2.0) mmol/L Calcium 9.7 (8.5-10.1) mg/dL Total Bilirubin 0.5 (0.2-1.0) mg/dL AST 29 (15-37) U/L ALT 65 H (14-59) U/L Alkaline Phosphatase 111 (46-116) U/L Total Protein 7.5 (6.4-8.2) g/dL Albumin 4.0 (3.4-5.0) g/dL Globulin 3.5 Albumin/Globulin Ratio 1.1 Meds: Medications Discontinued Medications Generic Name Dose Route Start Last Admin Trade Name Freq PRN Reason Stop Dose Admin Cephalexin Confirm 03/21/20 22:08 03/21/20 22:16 Keflex Administered 03/21/20 22:09 1,500 mg Dose Administration 1,500 mg .ROUTE .STK-MED ONE Ceftriaxone Sodium 1 gm/ 0 gm 03/21/20 22:02 03/21/20 22:14 Lidocaine HCl 2.1 ml IM 03/21/20 22:03 2.1 inj ONETIME ONE Administration Departure - Departure Time of Disposition: 22:07 Disposition: Home, Self-Care 01 Condition: Fair Clinical Impression: Mastitis - Discharge Information *PRESCRIPTION DRUG MONITORING PROGRAM REVIEWED*: No *COPY OF PRESCRIPTION DRUG MONITORING REPORT IN PATIENT EDEN: No Instructions: and Mastitis Referrals: Christie Dorsey MD [Primary Care Provider] - Forms: ED Department Discharge Additional Instructions: icrease fluids keflex 500mg one 4 times daily tylenol or ibuprofen alternating every 4 hours as needed warm packs to breast continue to pump clinic recheck with PCP on Monday Urgent follow up if worsening,or uncontrolled fever, increased redness pain or swelling of breast Sepsis Event Note (ED) - Evaluation Sepsis Screening Result: No Definite Risk
[2020-03-21 22:20] VITALS: BP 107/72
== END 2020-03-21 22:20 | disposition home or self-care (01) ==
LOC: DL.ED 20:56
DX: N61.0 Mastitis without abscess (principal)
CPT/HCPCS: 36415; 80053; 83605; 85025; 87040; 96372; 99283; A9270; J0696; J2001

== ENCOUNTER 2022-07-16 23:51 | Emergency (ER) | payer BC ==
[2022-07-16] MEDS ORDERED: Amoxicillin 500 MG Cap PO ONE (23:52)
[2022-07-17] MEDS ORDERED: Oxymetazoline 0.05% Nasal Spray 30 ML Bottle NAS ONE (01:46)
[2022-07-17] MEDS ORDERED: Tetracaine HCl/PF 0.5% 4 ML Bottle ONE (01:49)
[2022-07-17 02:30] LABS: ANION GAP 13.6 mEq/L (7-13); CHLORIDE,CL 105 mmol/L (98-107); SODIUM,NA 138 mmol/L (136-145)
[2022-07-17 02:36] LABS: ESTIMATED GFR 120 mL/min (>=60)
[2022-07-17 02:49] VITALS: BP 131/88; PULSE 90
[2022-07-17] MEDS ORDERED: Amoxicillin 500 MG Cap ONE (03:07)
== END 2022-07-17 03:13 | disposition home or self-care (01) ==
LOC: DL.ED 23:51
DX: O99.513 Diseases of the respiratory system complicating pregnancy, third trimester (principal); J01.90 Acute sinusitis, unspecified; Z3A.29 29 weeks gestation of pregnancy
CPT/HCPCS: 36415; 80053; 85025; 99283; A9270

== ENCOUNTER 2022-09-22 08:03 | Inpatient (IN) | payer BC ==
[~2022-09-22 08:03] MED LIST: Acetaminophen 325 MG Tab PO PRN; Carboprost Tromethamine 250 MCG/1 ML Amp IM PRN; Dexmedetomidine 200 MCG/2 ML SDV IT ONE; Lactated Ringers 1,000 ML IV SCH; Lidocaine 1% 10 ML MDV INJECT PRN; Methylergonovine 0.2 MG/1 ML Amp IM PRN; Misoprostol 400 MCG (4 X 100 MCG TAB) RECTAL PRN; Morphine PF 10 MG/10 ML SDV IT ONE; Ondansetron 4 MG/2 ML SDV IVPUSH PRN; Sodium Chloride 0.9% 10 ML Syringe FLUSH PRN
[2022-09-22] MEDS: Misoprostol 25 MCG (1/4 of 100 MCG) Tab VAG PRN ×2 (09:35→14:35)
[2022-09-22] MEDS: Sodium Chloride 0.9% 10 ML Syringe FLUSH SCH (09:36)
[2022-09-23] MEDS: Misoprostol 25 MCG (1/4 of 100 MCG) Tab VAG PRN ×2 (00:10→04:36)
[2022-09-23] MEDS: Sodium Chloride 0.9% 10 ML Syringe FLUSH SCH ×3 (09:07→22:44)
[2022-09-23] MEDS: Lactated Ringers 1,000 ML IV SCH ×2 (09:08→19:01)
[2022-09-23] MEDS: Oxytocin/Normal Saline 30 UNIT/500 ML BAG IV SCH ×2 (09:24→20:38)
[2022-09-23] MEDS ORDERED: Morphine PF 10 MG/10 ML SDV ONE (18:09)
[2022-09-23] MEDS ORDERED: Simethicone 80 MG Tab.Chew PO PRN (20:33)
[2022-09-23] MEDS ORDERED: Oxytocin 10 Units/1 ML SDV IM PRN (20:33)
[2022-09-23] MEDS ORDERED: Benzocaine/Menthol 20%-0.5% Spray 78 GM Cannister TOP PRN (20:33)
[2022-09-23] MEDS ORDERED: Acetaminophen 325 MG Tab PO PRN (20:33)
[2022-09-23] MEDS ORDERED: Witch Hazel Medicated Pads 100/Jar TOP PRN (20:33)
[2022-09-23] MEDS ORDERED: ceFAZolin 1 GM in Sodium Chloride 0.9% 50 ML IV ONE (20:35)
[2022-09-23] MEDS ORDERED: Tranexamic Acid 1,000 MG in Sodium Chloride 0.9% 100 ML IV PRN (20:39)
[2022-09-23] MEDS: Docusate Sodium 100 MG Cap PO PRN (21:28)
[2022-09-24] MEDS: Prenatal Multivitamin with Calcium/Folic Acid/Iron Tab PO SCH (08:17)
[2022-09-24] MEDS: Ibuprofen 800 MG Tab PO PRN ×2 (08:17→21:40)
[2022-09-24] MEDS: Ferrous Sulfate 325 MG Tab PO SCH (08:17)
[2022-09-24] MEDS: Docusate Sodium 100 MG Cap PO PRN ×2 (08:17→21:40)
[2022-09-24] MEDS: Sodium Chloride 0.9% 10 ML Syringe FLUSH SCH (10:31)
[2022-09-25] MEDS: Ibuprofen 800 MG Tab PO PRN (06:11)
[2022-09-25] MEDS: Prenatal Multivitamin with Calcium/Folic Acid/Iron Tab PO SCH (08:20)
[2022-09-25] MEDS: Docusate Sodium 100 MG Cap PO PRN (08:20)
[2022-09-25] MEDS: Ferrous Sulfate 325 MG Tab PO SCH (08:20)
[2022-09-25 08:53] VITALS: BP 122/76; PULSE 86
== END 2022-09-25 10:45 | disposition home or self-care (01) | DRG 560 ==
LOC: DL.OB 08:03 → OBSVTOIN 09-23 19:54
PROVIDERS: ADMIT Family Medicine; ATTEND Family Medicine
PROC: 10E0XZZ Delivery of Products of Conception, External Approach (ICD-10-PCS; principal; 2022-09-23)
PROC: 10907ZC Drainage of Amniotic Fluid, Therapeutic from Products of Conception, Via Natural or Artificial Opening (ICD-10-PCS; 2022-09-23)
PROC: 3E0R3BZ Introduction of Anesthetic Agent into Spinal Canal, Percutaneous Approach (ICD-10-PCS; 2022-09-23)
PROC: 00HU33Z Insertion of Infusion Device into Spinal Canal, Percutaneous Approach (ICD-10-PCS; 2022-09-23)
PROC: 0HQ9XZZ Repair Perineum Skin, External Approach (ICD-10-PCS; 2022-09-23)
DX: O32.9XX0 Maternal care for malpresentation of fetus, unspecified, not applicable or unspecified (principal); Z37.0 Single live birth; O72.1 Other immediate postpartum hemorrhage; Z20.822 Contact with and (suspected) exposure to COVID-19; Z28.82 Immunization not carried out because of caregiver refusal; Z3A.39 39 weeks gestation of pregnancy
CPT/HCPCS: 36415; 51701; 59409; 76815; 85027; 92950; A9270-GY; J0690; J2270; J2405; J2590; J3490; J7120; U0002

== ENCOUNTER 2025-07-22 07:35 | Inpatient (IN) | payer BC ==
[2025-07-22] MEDS ORDERED: Sodium Chloride 0.9% 10 ML Syringe FLUSH PRN (07:38)
[2025-07-22] MEDS ORDERED: Lactated Ringers 1,000 ML IV ONE (07:38)
[2025-07-22] MEDS ORDERED: Carboprost Tromethamine 250 MCG/1 mL Vial IM PRN (07:38)
[2025-07-22] MEDS ORDERED: Oxytocin/Lactated Ringers 30 UNIT/500 ML BAG IV SCH (07:45)
[2025-07-22 08:25] LABS: PLATELET COUNT,PLT 178.0 10^3/uL (150-450); RED BLOOD CELL COUNT 4.45 10^6/uL (4.2-5.4); WHITE BLOOD CELL COUNT,WBC 7.0 10^3/uL (5.0-10.0)
[2025-07-22] MEDS: Misoprostol 50 MCG (1/2 of 100 MCG) Tab PO SCH (08:35)
[2025-07-22] MEDS: Misoprostol 50 MCG (1/2 of 100 MCG) Tab PO PRN (16:40)
[2025-07-23] MEDS: Oxytocin/Normal Saline 30 UNIT/500 ML BAG IV SCH (03:00)
[2025-07-23] MEDS: Lactated Ringers 1,000 ML IV SCH (14:39)
[2025-07-23] MEDS ORDERED: Ropivacaine 200 MG in Premix Bag 1 BAG EPIDUR SCH (14:45)
[2025-07-23] MEDS ORDERED: ePHEDrine 50 MG/ML SDV ONE (15:56)
[2025-07-23] MEDS: ePHEDrine 50 MG/ML SDV IVPUSH PRN (17:10)
[2025-07-23] MEDS: Ondansetron 4 MG/2 ML SDV IVPUSH PRN (18:19)
[2025-07-23] MEDS ORDERED: Oxytocin 10 Units/1 ML SDV IM PRN (18:28)
[2025-07-24] MEDS: Benzocaine/Menthol 20%-0.5% Spray 78 GM Cannister TOP PRN (00:11)
[2025-07-24] MEDS: Witch Hazel Medicated Pads 100/Jar TOP PRN (00:12)
[2025-07-24] MEDS: Prenatal Multivitamin with Calcium/Folic Acid/Iron Tab PO SCH (08:27)
[2025-07-24 18:49] LABS: PLATELET COUNT,PLT 154.0 10^3/uL (150-450); RED BLOOD CELL COUNT 3.84 10^6/uL (4.2-5.4); WHITE BLOOD CELL COUNT,WBC 8.6 10^3/uL (5.0-10.0)
[2025-07-24 19:26] VITALS: BP 119/54; PULSE 84
== END 2025-07-24 19:45 | disposition home or self-care (01) | DRG 560 ==
LOC: DL.OB 07:58 → OBSVTOIN 18:04
PROVIDERS: ADMIT Family Medicine; ATTEND Family Medicine
PROC: 3E0R3BZ Introduction of Anesthetic Agent into Spinal Canal, Percutaneous Approach (ICD-10-PCS; principal; 2025-07-22)
PROC: 3E0DXGC Introduction of Other Therapeutic Substance into Mouth and Pharynx, External Approach (ICD-10-PCS; principal; 2025-07-22)
PROC: 10H07YZ Insertion of Other Device into Products of Conception, Via Natural or Artificial Opening (ICD-10-PCS; principal; 2025-07-22)
PROC: 10907ZC Drainage of Amniotic Fluid, Therapeutic from Products of Conception, Via Natural or Artificial Opening (ICD-10-PCS; principal; 2025-07-22)
PROC: 10E0XZZ Delivery of Products of Conception, External Approach (ICD-10-PCS; principal; 2025-07-22)
DX: O99.02 Anemia complicating childbirth (principal); Z3A.39 39 weeks gestation of pregnancy; Z37.0 Single live birth; Z90.49 Acquired absence of other specified parts of digestive tract; Z98.890 Other specified postprocedural states; Z79.899 Other long term (current) drug therapy
CPT/HCPCS: 36415; 51701; 76815; 85027; A9270-GY; J2405; J2590; J3490; J7120